=== PATIENT | female | born 1930 | race Caucasian/White ===

== ENCOUNTER → 2016-06-30 | Outpatient (CLI) | payer MEDICARE, BC ==
[2011-04-28 18:00] VITALS: BP 142/68
[~2016-06-30] MED LIST: AMARYL1 MG PO; ANASTROZOLE1 MG PO; ATENOLOL25 MG PO; BACTRIM DS 8001 TAB PO; CARDIZEM CD240 MG PO; GLIMEPIRIDE1 MG PO; GLUCOTROL5 M1 PO; GOOD NEIGHBOR500 M2 PO; LOSARTAN POTASS50 MG PO; METOPROLOL TAR100 M1 PO; OMEPRAZOLE D/R20 MG PO; SEPTRA DS 8001 TAB PO
== END ==
LOC: RAD 10:59
DX: R22.42 Localized swelling, mass and lump, left lower limb (principal)

== ENCOUNTER 2016-07-04 11:16 | Emergency (ER) | payer MEDICARE, BC ==
[~2016-07-04] VITALS: Ht 162.6 cm; Wt 64.5 kg
[~2016-07-04 11:16] MED LIST changes: -ANASTROZOLE1 MG PO; -BACTRIM DS 8001 TAB PO; -GLIMEPIRIDE1 MG PO; -GOOD NEIGHBOR500 M2 PO; -LOSARTAN POTASS50 MG PO; -METOPROLOL TAR100 M1 PO; -SEPTRA DS 8001 TAB PO
[2016-07-04] MEDS ORDERED: GLIMEPIRIDE1 MG PO (11:42)
[2016-07-04] MEDS ORDERED: METOPROLOL TAR100 M1 PO (11:42)
[2016-07-04] MEDS ORDERED: BACTRIM DS 8001 TAB PO (11:43)
[2016-07-04] MEDS ORDERED: LOSARTAN POTASS50 MG PO (11:44)
[2016-07-04] MEDS ORDERED: ANASTROZOLE1 MG PO (11:46)
[2016-07-04] MEDS ORDERED: GOOD NEIGHBOR500 M2 PO (11:47)
[2016-07-04] MEDS ORDERED: SEPTRA DS 8001 TAB PO (12:32)
[2016-07-04 12:40] VITALS: BP 116/68
== END 2016-07-04 13:10 | disposition home or self-care (01) ==
LOC: ED 11:16
DX: S81.812A Laceration without foreign body, left lower leg, initial encounter (principal); W55.03XA Scratched by cat, initial encounter; Y93.9 Activity, unspecified; Y92.009 Unspecified place in unspecified non-institutional (private) residence as the place of occurrence of the external cause; Z85.3 Personal history of malignant neoplasm of breast
CPT/HCPCS: 90715; A4550

== ENCOUNTER 2016-07-08 10:24 | Emergency (ER) | payer MEDICARE, BC ==
[~2016-07-08 10:24] MED LIST changes: +ANASTROZOLE1 MG PO; +BACTRIM DS 8001 TAB PO; +GLIMEPIRIDE1 MG PO; +GOOD NEIGHBOR500 M2 PO; +LOSARTAN POTASS50 MG PO; +METOPROLOL TAR100 M1 PO; +SEPTRA DS 8001 TAB PO
[2016-07-08 10:46] VITALS: BP 151/56
== END 2016-07-08 10:46 | disposition home or self-care (01) ==
LOC: ED 10:24

== ENCOUNTER → 2017-10-12 | Outpatient (CLI) | payer MEDICARE, BC | LOC: RAD 16:07 | DX: S92.355A Nondisplaced fracture of fifth metatarsal bone, left foot, initial encounter for closed fracture (principal) ==